=== PATIENT | male | born 1940 | race Caucasian/White ===

== ENCOUNTER 2020-12-21 05:40 | Emergency (ER) | payer MEDICARE ==
[~2020-12-21] VITALS: Ht 167.6 cm; Wt 100.0 kg
[2020-12-21 05:44] VITALS: TEMP 97.8
[2020-12-21] MEDS ORDERED: PRINIVIL20 MG PO (05:57)
[2020-12-21] MEDS ORDERED: CLEOCIN HC150 MG/CAP PO (06:37)
[2020-12-21 06:45] VITALS: BP 172/83; PULSE 64
== END 2020-12-21 06:42 | disposition home or self-care (01) ==
LOC: COL.ER 05:40
DX: S61.411A Laceration without foreign body of right hand, initial encounter (principal); Z79.01 Long term (current) use of anticoagulants; Z88.0 Allergy status to penicillin; Z88.6 Allergy status to analgesic agent; Z88.2 Allergy status to sulfonamides; W27.8XXA Contact with other nonpowered hand tool, initial encounter